=== PATIENT | female | born 1975 | race Caucasian/White ===

== ENCOUNTER 2025-03-09 06:02 | Emergency (ER) | payer SELFPAY ==
[2025-03-09] MEDS: Lidocaine 1% with EPINEPHrine 1:100,000 20 ML MDV INJECT ONE (06:35)
== END 2025-03-09 06:51 | disposition home or self-care (01) ==
LOC: LB.ED 06:02
DX: K08.89 Other specified disorders of teeth and supporting structures (principal); F17.200 Nicotine dependence, unspecified, uncomplicated; Z79.899 Other long term (current) drug therapy; Z91.013 Allergy to seafood; Z90.49 Acquired absence of other specified parts of digestive tract
CPT/HCPCS: 64400; 96372; 99282; J0696; J2004; 99283; A9270-GY

== ENCOUNTER 2025-04-13 10:33 | Emergency (ER) | payer MEDICAID ==
[2025-04-13] MEDS: Orphenadrine 60 MG/2 ML Inj IM ONE (11:40)
[2025-04-13] MEDS: Ketorolac 15 MG/ML SDV IM ONE (11:40)
== END 2025-04-13 12:06 | disposition home or self-care (01) ==
LOC: LB.ED 10:33
DX: S22.32XA Fracture of one rib, left side, initial encounter for closed fracture (principal); I10 Essential (primary) hypertension; F17.210 Nicotine dependence, cigarettes, uncomplicated; Z91.013 Allergy to seafood; Z79.899 Other long term (current) drug therapy; Z86.16 Personal history of COVID-19; Z90.49 Acquired absence of other specified parts of digestive tract; W00.0XXA Fall on same level due to ice and snow, initial encounter
CPT/HCPCS: 71101-LT; 96372; 99283; J1885; J2360